=== PATIENT | male | born 1990 | race Caucasian/White ===

== ENCOUNTER 2018-09-11 16:40 | Emergency (ER) | payer SELFPAY ==
[~2018-09-11] VITALS: Ht 172.7 cm; Wt 92.5 kg
[2018-09-11 16:51] VITALS: BP 134/86
[2018-09-11] MEDS ORDERED: IBUPROFEN 600 MG TABLET PO ONE ×2 (17:19→17:30)
== END 2018-09-11 18:34 | disposition home or self-care (01) ==
LOC: ER 16:45
DX: M54.6 Pain in thoracic spine (principal); M54.2 Cervicalgia; V49.49XA Driver injured in collision with other motor vehicles in traffic accident, initial encounter; Y93.89 Activity, other specified; Y92.411 Interstate highway as the place of occurrence of the external cause; Y99.8 Other external cause status
CPT/HCPCS: 72074-TC; 72110-TC